=== PATIENT | male | born 1990 | race Caucasian/White ===

== ENCOUNTER 2017-02-10 07:46 | Emergency (ER) | payer SELFPAY ==
--- NOTE | 2017-02-10 07:58 | EDM.PDOC ---
ED HPI Trauma - General Chief Complaint: Upper Extremity Injury/Pain Stated Complaint: THUMB INJURY Time Seen by Provider: 02/10/17 07:56 - History of Present Illness INITIAL COMMENTS - FREE TEXT/NARRATIVE: HISTORY AND PHYSICAL: History of present illness: The patient's 26-year-old white male just insert of acute injury to first digit of left hand by a blunt force trauma he denies other trauma or concern Review of systems: As per history of present illness and below otherwise all systems reviewed and negative. Past medical history: As per history of present illness and as reviewed below otherwise noncontributory. Surgical history: As per history of present illness and as reviewed below otherwise noncontributory. Social history: No reported history of drug or alcohol abuse. Family history: As per history of present illness and as reviewed below otherwise noncontributory. Physical exam: HEENT: Atraumatic, normocephalic, pupils reactive, negative for conjunctival pallor or scleral icterus, mucous membranes moist, throat clear, neck supple, nontender, trachea midline. Lungs: Clear to auscultation, breath sounds equal bilaterally, chest nontender. Heart: S1S2, regular, negative for clicks, rubs, or JVD. Abdomen: Soft, nondistended, nontender. Negative for masses or hepatosplenomegaly. Negative for costovertebral tenderness. Pelvis: Stable nontender. Genitourinary: Deferred. Rectal: Deferred. Extremities: Patient has tenderness at the base of the first digit of the left hand limited range of motion secondary to pain no gross deformity no crepitation CMS neurovascular is unremarkable there is no tendon Neuro: Awake, alert, oriented. Cranial nerves II through XII unremarkable. Cerebellum unremarkable. Motor and sensory unremarkable throughout. Exam nonfocal. Diagnostics: X-ray left hand attention first digit Therapeutics: to Be determined Impression: #1 acute injury left hand (first digit) blunt force trauma Definitive disposition and diagnosis as appropriate pending reevaluation and review of above. Allergies/ADRs: Allergies No Known Allergies Allergy (Verified 02/10/17 07:56) Home Medications: Ambulatory Orders . [No Known Home Meds] 02/10/17 [Confirmed 02/10/17] Review of Systems - Review of Systems Review Of Systems: ROS reveals no pertinent complaints other than HPI. Trauma Exam - Physical Exam Exam: See Below (see dictation) Course - Vital Signs Last Recorded V/S: Last Vital Signs Temp 36.9 C 02/10/17 07:56 Pulse 92 02/10/17 07:56 Resp 18 02/10/17 07:56 BP 134/81 02/10/17 07:56 Pulse Ox 97 02/10/17 07:56 - Orders/Labs/Meds Orders: Active Orders 24 hr Category Date Time Status Fingers Thumb Lt FA [CR] Stat Exams 02/10/17 07:56 Taken Departure - Departure Time of Disposition: 08:59 Disposition: Home, Self-Care 01 Condition: good Clinical Impression: Thumb injury Forms: ED Department Discharge Additional Instructions: The following information is given to patients seen in the emergency department who are being discharged to home. This information is to outline your options for follow-up care. We provide all patients seen in our emergency department with a follow-up referral. The need for follow-up, as well as the timing and circumstances, are variable depending upon the specifics of your emergency department visit. If you don't have a primary care physician on staff, we will provide you with a referral. We always advise you to contact your personal physician following an emergency department visit to inform them of the circumstance of the visit and for follow-up with them and/or the need for any referrals to a consulting specialist. The emergency department will also refer you to a specialist when appropriate. This referral assures that you have the opportunity for followup care with a specialist. All of these measure are taken in an effort to provide you with optimal care, which includes your followup. Under all circumstances we always encourage you to contact your private physician who remains a resource for coordinating your care. When calling for followup care, please make the office aware that this follow-up is from your recent emergency room visit. If for any reason you are refused follow-up, please contact the [facility] emergency department at and asked to speak to the emergency department charge nurse. Followup primary care/Worker's Comp. as discussed splint as directed Motrin or Tylenol as directed return as needed as discussed - My Orders Last 24 Hours: My Active Orders 02/10/17 07:56 Fingers Thumb Lt FA [CR] Stat - Assessment/Plan Last 24 Hours: My Active Orders 02/10/17 07:56 Fingers Thumb Lt FA [CR] Stat
[2017-02-10 09:21] VITALS: BP 140/86
--- NOTE | 2017-02-10 13:03 | CR ---
EXAM DATE: 02/10/17 PATIENT'S AGE: 26 Patient: KRISTAL POSADAS Facility: [place], [place] Site . Site : 1990 Study: XRay Extremity Left Thumb [id number]/28/2017 8:13:01 AM Ordering Physician: Doctor Duenas Final Report: Indication: Trauma and pain Technique: Left thumb 3 views Comparison: None Findings: Bones: Alignment is normal. No fractures or bone lesions. Joint spaces: Unremarkable. Soft tissues: Unremarkable. Impression: No sign of acute injury. Dictated by Sergio Oneil MD @ 02/10/2017 8:18:33 AM Dictated by: Sergio Oneil MD @ 02/10/2017 08:18:42 (Electronic Signature) Report Signed by Proxy and Original Signed Document filed in the Medical Record. MTDD
== END 2017-02-10 09:20 | disposition home or self-care (01) ==
LOC: MW.ED 07:46
DX: S69.92XA Unspecified injury of left wrist, hand and finger(s), initial encounter (principal); X58.XXXA Exposure to other specified factors, initial encounter
CPT/HCPCS: 73140-26-FA; 73140-FA; 99282; 99283